=== PATIENT | female | born 1960 | race Caucasian/White ===

== ENCOUNTER 2024-07-15 07:14 | Emergency (ER) | payer OTHER | END 2024-07-15 09:36 | disposition home or self-care (01) | LOC: JP.ED 07:14 | DX: S92.512A Displaced fracture of proximal phalanx of left lesser toe(s), initial encounter for closed fracture (principal); Z90.49 Acquired absence of other specified parts of digestive tract; X58.XXXA Exposure to other specified factors, initial encounter | CPT/HCPCS: 28515; 73630-26-LT; 73630-LT; 99283; 99283-25 ==